=== PATIENT | female | born 2000 | race Caucasian/White ===

== ENCOUNTER 2020-01-06 18:03 | Emergency (ER) | payer OTHER, MEDICAID ==
[~2020-01-06] VITALS: Ht 152.4 cm; Wt 52.2 kg
[2020-01-06 18:26] VITALS: BP_SYST 116
[2020-01-06] MEDS: IBUPROFEN 600 MG TABLET PO ONE (20:53)
[2020-01-06 21:39] VITALS: BP_SYST 116
== END 2020-01-06 21:39 | disposition home or self-care (01) ==
LOC: SED 18:03
DX: S42.011A Anterior displaced fracture of sternal end of right clavicle, initial encounter for closed fracture (principal); V49.60XA Unspecified car occupant injured in collision with unspecified motor vehicles in traffic accident, initial encounter; Y93.89 Activity, other specified; Y92.413 State road as the place of occurrence of the external cause; Y99.8 Other external cause status
CPT/HCPCS: 71045; 73060-TC; 81002; 81025; 99284